=== PATIENT | male | born 1945 | race Caucasian/White ===

== ENCOUNTER 2021-03-03 08:09 | Observation (INO) ==
[2021-03-03 09:53] LABS: Basophils % 0.3 %; Eosinophils # 0.1 K/mcL (0.0-0.6); Eosinophils % 0.6 %; Hematocrit 38.2 % (37.5-50.1); Hemoglobin 13.1 g/dL (12.9-16.9); Immature Granulocytes % 0.8 % (0-4); Lymphocytes # 1.1 K/mcL (0.6-4.6); Lymphocytes % 13.3 %; Mean Corpuscular HGB Conc 34.3 g/dL (31.6-35.5); Mean Corpuscular Hemoglobin 33.3 pg (28.0-33.3); Mean Corpuscular Volume 97.2 fL (83.0-100.0); Mean Platelet Volume 10.3 fL (9.4-12.4); Monocytes # 0.5 K/mcL (0.0-1.3); Monocytes % 6.8 %; Neutrophils # 6.3 K/mcL (1.6-8.9); Platelet Count 187 K/mcL (140-400); Red Blood Count 3.93 M/mcL (4.19-5.50); Red Cell Distribution Width 11.9 % (11.5-14.5); Segmented Neutrophils % 78.2 %
[2021-03-03 10:10] LABS: Alanine Aminotransferase 21 Units/L (7-52); Albumin 4.3 g/dL (3.5-5.7); Albumin/Globulin Ratio 1.5 (1.1-2.2); Alkaline Phosphatase 63 Units/L (34-104); Aspartate Amino Transferase 21 Units/L (13-39); BUN/Creatinine Ratio 15 (6-26); Bilirubin,Total 0.4 mg/dL (0.3-1.0); Blood Urea Nitrogen 17 mg/dL (8-23); Calcium 9.8 mg/dL (8.6-10.3); Carbon Dioxide 28 mEq/L (23-29); Chloride 101 mEq/L (98-107); Globulin 2.9 g/dL (2.4-3.5); Glucose 95 mg/dL (70-105); Lipase 28 Units/L (11-82); Magnesium 1.9 mg/dL (1.6-2.6); Osmolality,Calculated 281 (280-300); Sodium 135 mEq/L (136-145); Total Protein 7.2 g/dL (6.4-8.9); eGFR For African Americans > 60 (> 60); eGFR For Non-African Americans > 60 (> 60)
[2021-03-03] MEDS ORDERED: Isovue-370 500 ML BOTTLE IVP ONE (10:20)
[2021-03-03 11:19] LABS: Bacteria,Urine Few per hpf (None-Few); Bilirubin,Urine Negative (Negative); Blood,Urine Negative (Negative); Clarity,Urine Turbid (Clear); Color,Urine Light-Yellow (Yellow); Glucose,Urine (UA) Normal (Normal); Ketones,Urine Negative (Negative); Leukocyte Esterase,Urine Negative (Negative); Mucus,Urine Few per lpf (None-Few); Nitrite,Urine Negative (Negative); Protein,Urine 70 mg/dL (Neg-Trace); Specific Gravity,Urine 1.018 (1.010-1.025); Sperm,Urine Present per hpf (None Seen); Urobilinogen,Urine Normal (Normal); WBC,Urine 0-3 per hpf (0-3)
[2021-03-03] MEDS ORDERED: Naloxone 0.4 MG/ML INJ IVP PRN (12:37)
[2021-03-03] MEDS ORDERED: *HR* OxyCODONE Immed Rel 5 MG TABLET PO PRN (14:09)
[2021-03-03] MEDS ORDERED: Acetaminophen 325 MG TABLET PO PRN (14:11)
[2021-03-03] MEDS ORDERED: Ibuprofen 200 MG TABLET PO PRN (14:11)
[2021-03-03] MEDS ORDERED: ZINC TP PRN (15:00)
[2021-03-03] MEDS ORDERED: PETROLAT TP PRN (15:00)
[2021-03-03] MEDS ORDERED: CALAMINE TP PRN (15:00)
[2021-03-03] MEDS ORDERED: MENTHOL TP PRN (15:00)
[2021-03-03] MEDS: Primidone 50 MG TABLET PO SCH ×2 (15:51→20:52)
[2021-03-03] MEDS: QUEtiapine Fumarate 25 MG TABLET PO SCH (15:52)
[2021-03-03] MEDS: *HR* Heparin 5,000 UNIT/ML VIAL SQ SCH (18:50)
[2021-03-03] MEDS: *HR* LORazepam 1 MG TABLET PO SCH (20:50)
[2021-03-03] MEDS: FluocinoNIDE 0.05% CRM 15 GM TUBE TP SCH (23:26)
[2021-03-03] MEDS: FLUOCINONIDE 0.05% TP SCH (23:26)
[2021-03-04] MEDS: *HR* Heparin 5,000 UNIT/ML VIAL SQ SCH ×2 (05:33→16:28)
[2021-03-04] MEDS: Primidone 50 MG TABLET PO SCH ×3 (07:30→20:08)
[2021-03-04] MEDS: *HR* LORazepam 1 MG TABLET PO SCH ×2 (07:30→20:08)
[2021-03-04] MEDS: FLUOCINONIDE 0.05% TP SCH ×2 (07:31→20:09)
[2021-03-04] MEDS: polyethylene glycoL 3350 17 GM POWD.PACK PO SCH (07:32)
[2021-03-04] MEDS: FluocinoNIDE 0.05% CRM 15 GM TUBE TP SCH ×2 (07:32→20:09)
[2021-03-04] MEDS: QUEtiapine Fumarate 25 MG TABLET PO SCH (11:07)
[2021-03-05] MEDS: *HR* Heparin 5,000 UNIT/ML VIAL SQ SCH ×2 (04:56→14:38)
[2021-03-05] MEDS: polyethylene glycoL 3350 17 GM POWD.PACK PO SCH (08:28)
[2021-03-05] MEDS: *HR* LORazepam 1 MG TABLET PO SCH (08:28)
[2021-03-05] MEDS: FLUOCINONIDE 0.05% TP SCH (08:29)
[2021-03-05] MEDS: Primidone 50 MG TABLET PO SCH ×2 (08:29→14:37)
[2021-03-05] MEDS: FluocinoNIDE 0.05% CRM 15 GM TUBE TP SCH (09:07)
[2021-03-05 10:27] VITALS: BP 119/76; PULSE 102; TEMP 98.9; O2SAT 95
[2021-03-05] MEDS ORDERED: Sennosides/Docusate Sodium TABLET PO SCH (11:15)
[2021-03-05] MEDS: QUEtiapine Fumarate 25 MG TABLET PO SCH (12:06)
== END 2021-03-05 19:49 | disposition home health service (06) ==
LOC: EMEROOARM 08:09 → 3BNU 08:09 → SUATTDRO 12:44 → 3BNU 13:35
PROVIDERS: ADMIT Student in an Organized Health Care Education/Training Program; ATTEND Student in an Organized Health Care Education/Training Program